=== PATIENT | female | born 1990 | race African-American/Black ===

== ENCOUNTER 2024-11-26 19:45 | Emergency (ER) | payer OTHER, SELFPAY ==
[2024-11-26 19:50] VITALS: BP 135/86
[2024-11-26 20:09] LABS: Hematocrit 38.6 % (37.0-47.0); Hemoglobin 13.6 g/dL (12.0-16.0); Mean Corp Hgb Conc. 35.2 g/dL (33.0-37.0); Mean Corpuscular Volume 82.8 fL (81.0-99.0); Nucleated Red Blood Cells % 0 %; Platelet Count 222 10^3/uL (130-400); Red Cell Dist. Width 12.4 % (11.5-14.5)
[2024-11-26 20:33] LABS: ALT (SGPT) 15 U/L (0-35); AST (SGOT) 21 U/L (14-36); Albumin 4.7 g/dl (3.5-5.0); Alkaline Phosphatase 44 U/L (38-126); Blood Urea Nitrogen 14 mg/dl (7-17); Calcium 9.9 mg/dl (8.4-10.2); Carbon Dioxide 22 mmol/L (22-30); Chloride 105 mmol/L (98-107); Glucose 92 mg/dl (70-99); Potassium 4.2 mmol/L (3.5-5.1); Sodium 136 mmol/L (135-145); Total Protein 7.5 g/dl (6.3-8.2); eGFR > 60.00
[2024-11-26 22:09] VITALS: BP 125/65
--- NOTE | 2024-11-26 22:19 | ED.GENMED ---
History of Present Illness
General
Chief Complaint: Cough
Source: patient
Exam Limitations: none
Time Seen by Provider: 11/26/24 22:06
Nursing documentation reviewed up to this point in time: agreed with
History of Present Illness
History of Present Illness:
Patient to ED with complaint of worsening cough x 5 weeks. Denies fever/chills. Now with intermittent chest pain. No prior history of same. Advised by OB to go to . sent patient to ED. No other complaints
Past History
Past History
ED Past Medical History: Other (lupus)
Social History
Tobacco: Non-smoker
Review of Systems
Review of Systems
Allergies reviewed?: Yes
All Other Systems: ROS reviewed and negative except as documented in HPI and ROS
Constitutional: Reports no symptoms
EENT: Reports no symptoms
Respiratory: Reports cough
Cardiac: Reports chest pain
ABD/GI: Reports no symptoms
: Reports no symptoms
Musculoskeletal: Reports no symptoms
Skin: Reports no symptoms
Neurological: Reports no symptoms
Psychiatric: Reports no symptoms
Phy Exam
General Physical Exam
General Presentation: well appearing and no apparent distress
General age: appears stated age
General Skin: warm and dry
ENT Exam
ENT Exam: EOMI, TM's normal, pharynx normal, normocephalic and swallowing well
Cardiovascular Exam
Cardiovascular Exam: regular rate/rhythm and no edema
Pulmonary Exam
Pulmonary Exam: lungs clear and no respiratory distress (Pulse ox 99% RA)
Musculoskeletal Exam
Musculoskeletal Exam: full ROM and neuro vasc intact
Skin Exam
Skin Exam: normal color, warm/dry and no rash
Psychiatric Exam
Psychiatric Exam: normal mood/affect
Course
Orders/Labs/Results
Orders:
Orders
11/26/24 20:02
Complete Blood Count/With Diff Urgent
Comprehensive Metabolic Panel Urgent
11/26/24 22:17
Ipratropium/Albuterol Sulfate [Duoneb] 3 ml INH R NOW STA
11/26/24 22:57
D-Dimer Urgent
11/27/24 00:49
Amoxicillin 875 mg/Clav 125 mg [Augmentin 875 mg/125 mg] 1 tablet PO NOW STA
Azithromycin [Zithromax] 500 mg PO NOW STA
11/27/24 23:49
CR Chest - 2 Views Urgent
Reason For Exam: cough
Abnormal Lab Results
11/26/24
20:02
Absolute Monos (auto) 0.8 H 10^3/uL
(0.1-0.6)
Creatinine 0.5 L mg/dL
(0.6-1.0)
11/26/24 20:02
11/26/24 20:02
Vital Signs
Initial and Last Documented VS:
Initial Vital Signs
Temp Pulse BP Pulse Ox
98.6 F 94 135/86 100
11/26/24 19:50 11/26/24 19:50 11/26/24 19:50 11/26/24 19:50
Last Documented Vital Signs
Temp Pulse Resp BP Pulse Ox
98.6 F 81 16 125/65 98
11/26/24 19:50 11/26/24 22:45 11/26/24 22:45 11/26/24 22:09 11/26/24 22:45
*Radiology
Radiology exam reviewed: radiology read reviewed
*Pulse Oximetry
SaO2: 100
Oxygen Mode of Delivery: Room air
Patient hypoxic: no
*Critical Care Note
Total Time (30-74mins, 75-104mins- exclusive of procedures): Not Applicable
Update Note
Update Note:
Patient to ED wtih complaint of cough x 5 weeks. Denies fever/chills. Labs reviewed, WBC normal, ddimer neg CXR with RLL infiltrate concerning for pneumonia. VSS, pulse ox 99% RA. Will place on augmentin/azithromycin and she will be discharged
home. Given instructions on s/s to return to ED and she is agreable to plan.
ED Attending Note
-
Portions of this chart may have been created with voice recognition software.� Occasional wrong word or��sound alike� substitutions may have occurred due to the inherent limitations of voice recognition software.
Discharge Plan
Departure
Patient Disposition: Home (Routine Discharge)
Date of Disposition: 11/27/24
Time of Disposition: 00:52
Patient with high blood pressure during this ER visit?: No
Condition: Good
Covid-19: Not Applicable
Discharge Problem:
Pneumonia
Instructions: Pneumonia, Adult (DC)
Prescriptions:
New
amoxicillin-pot clavulanate 875-125 mg tablet
1 tab PO BID Qty: 20 0RF
azithromycin [Zithromax] 250 mg tablet
250 mg PO DAILY Qty: 4 0RF
Referrals:
Perlita Wolff PA [Family Provider, General] - Follow up in 2-3 days
Activity Restrictions/Additional Instructions:
return to the emergency department for any changes in/worsening of your symptoms
Interventions
Interventions:
*Risk Screen - Suicide Last Done: 11/26/24 19:53
*General Assessment Last Done: 11/26/24 19:53
*Neglect/Abuse Screening Last Done: 11/26/24 19:53
*ED- Fall Risk Assessment Last Done: 11/26/24 22:14
ED- Pulmonary Assessment Last Done: 11/26/24 22:14
Discharge Date and Time
Print Language: AMHARIC
[2024-11-26] MEDS: DUONEB 3 ML INH (22:58)
[2024-11-26 23:35] LABS: D-Dimer 0.38 ug/mlFEU (0.00-0.50)
[2024-11-27] MEDS: AUGMENTIN 875 MG/125 MG 1 TABLET PO (00:59)
[2024-11-27] MEDS: ZITHROMAX 500 MG PO (00:59)
== END 2024-11-27 01:39 | disposition home or self-care (01) ==
LOC: EMR 19:45
PROVIDERS: Nurse Practitioner; Student in an Organized Health Care Education/Training Program; EMERGENCY PHYSICIAN Emergency Medicine; FAMILY PHYSICIAN Physician Assistant
DX: J18.9 Pneumonia, unspecified organism (principal); M32.9 Systemic lupus erythematosus, unspecified
CPT/HCPCS: 99283; 94640; 71046; 80053; 85025; 85379